=== PATIENT | female | born 1995 | race Two or more races ===

== ENCOUNTER 2017-11-21 21:31 | Emergency (ER) | payer SELFPAY ==
[~2017-11-21] VITALS: Ht 160 cm; Wt 61.2 kg
--- NOTE | 2017-11-21 22:10 | NUR ---
Dr. Jim at bedside for MSE.
[2017-11-21] MEDS ORDERED: LET TOPICAL SOLUTION 8 ML UDC TOP ONE (22:15)
[2017-11-21] MEDS ORDERED: HYDROCODONE/APAP 5-325MG TABLET PO ONE (22:15)
[2017-11-21] MEDS ORDERED: LET TOPICAL SOLUTION 8 ML UDC ONE (22:22)
[2017-11-21] MEDS ORDERED: HYDROCODONE/APAP 5-325MG TABLET ONE (22:22)
--- NOTE | 2017-11-21 22:35 | NUR ---
Patient discharged to home in stable conditon. Written and verbal after care instructions given. Patient verbalizes understanding of instructions. Ambulated with stable gait. Patient to be driven home by her friend in a private vehicle. All belongings with patient.
[2017-11-21 22:38] VITALS: BP 120/74
== END 2017-11-21 22:42 | disposition home or self-care (01) ==
LOC: ER 21:33
DX: S01.01XA Laceration without foreign body of scalp, initial encounter (principal); F17.200 Nicotine dependence, unspecified, uncomplicated; W22.8XXA Striking against or struck by other objects, initial encounter; Y93.41 Activity, dancing; Y92.89 Other specified places as the place of occurrence of the external cause; Y99.8 Other external cause status
CPT/HCPCS: 12002; 99283; A4663; L8699